=== PATIENT | female | born 1990 | race Caucasian/White ===

== ENCOUNTER 2018-02-09 23:37 | Emergency (ER) | END 2018-02-10 02:24 | disposition left against medical advice (07) ==

== ENCOUNTER 2018-10-15 14:04 | Emergency (ER) | payer OTHER ==
[~2018-10-15] VITALS: Ht 165.1 cm; Wt 63.4 kg
[~2018-10-15 14:04] MED LIST: [UNRECOGNIZED DRUG - REMARK]
[2018-10-15 14:22] VITALS: Ht 165.1 cm; Wt 63.4 kg
[2018-10-15] MEDS ORDERED: LORAZEPAM 1 MG TAB PO ONE (15:00)
[2018-10-15] MEDS ORDERED: NAPR-985 PO (15:33)
[2018-10-15] MEDS ORDERED: LORA1TAB PO (15:49)
[2018-10-15 15:52] VITALS: BP 141/78; PULSE 101; RESP 18
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
== END 2018-10-15 15:55 | disposition home or self-care (01) ==
LOC: FTE 14:04
DX: S05.11XA Contusion of eyeball and orbital tissues, right eye, initial encounter (principal); Y04.8XXA Assault by other bodily force, initial encounter; Y92.89 Other specified places as the place of occurrence of the external cause
CPT/HCPCS: Z7502; Z7610; 99283